=== PATIENT | male | born 1955 | race African-American/Black ===

== ENCOUNTER 2021-09-17 12:31 | Emergency (ER) | payer OTHER ==
[~2021-09-17] VITALS: Ht 180.3 cm; Wt 61.0 kg
[2021-09-17] MEDS ORDERED: LIDO1ADH23 TP (16:38)
[2021-09-17] MEDS ORDERED: METH-653 MT (16:38)
[2021-09-17] MEDS ORDERED: KETOROLAC 60MG/2ML VIAL IM ONE (16:45)
[2021-09-17] MEDS ORDERED: METHOCARBAMOL 750MG TABLET PO SCH (16:45)
[2021-09-17] MEDS ORDERED: LIDOCAINE 5% PATCH TOP SCH (16:45)
[2021-09-17] MEDS ORDERED: HYDROCODONE/ACETAMINOPHEN 5/325MG TABLET PO ONE (16:45)
[2021-09-17 17:02] VITALS: BP 145/80
== END 2021-09-17 17:34 | disposition home or self-care (01) ==
LOC: ER 12:31
DX: M54.89 Other dorsalgia (principal); S43.492A Other sprain of left shoulder joint, initial encounter; R03.0 Elevated blood-pressure reading, without diagnosis of hypertension; E11.9 Type 2 diabetes mellitus without complications; X58.XXXA Exposure to other specified factors, initial encounter; Y93.89 Activity, other specified; Y92.89 Other specified places as the place of occurrence of the external cause
CPT/HCPCS: 96372; 99283; J1885